=== PATIENT | female | born 1985 | race Hispanic/Latino ===

== ENCOUNTER 2017-01-26 09:55 | Inpatient (IN) | payer BC ==
[2017-01-26 10:05] VITALS: BMI 27.4
[2017-01-26 10:40] LABS: HEMATOCRIT 40.3 % (34.0-47.0); MEAN CELL VOLUME 88.5 fl (81.0-99.0); MEAN CORPUSCULAR HGB CONC 33.9 g/dL (33.0-37.0); WHITE BLOOD COUNT 8.2 K/uL (4.8-10.8)
[2017-01-26] MEDS ORDERED: Bupivacaine 0.5% Inj(30mL) ONE (12:25)
[2017-01-26] MEDS ORDERED: Succinylcholine 200 mg/10 ml Inj IV ONE (13:36)
[2017-01-26] MEDS ORDERED: Rocuronium 10 mg/ml (5 ml) ONE ×2 (13:36→15:36)
[2017-01-26] MEDS ORDERED: ePHEDrine 50 mg/ml Inj ONE (13:36)
[2017-01-26] MEDS ORDERED: Propofol 10 mg/ml Inj (20 ML) ONE (13:36)
[2017-01-26] MEDS ORDERED: Midazolam 2 MG/2 ML VIAL ONE (14:12)
[2017-01-26] MEDS ORDERED: Lactated Ringer's 1,000 ML IV ONE ×3 (14:17→17:15)
[2017-01-26] MEDS ORDERED: Chlorhexidine Gluconate 2OZ GEL TP ONE (14:26)
[2017-01-26] MEDS ORDERED: Bupivacaine 0.5% 50 ML IJ ONE ×3 (14:38→15:00)
[2017-01-26] MEDS ORDERED: Dexamethasone 4 mg/1 ml ONE (14:41)
[2017-01-26] MEDS ORDERED: Sevoflurane - Inhalation Anesthetic Liq (250 ml) ONE (14:52)
[2017-01-26] MEDS ORDERED: Neostigmine Methylsulfate 2 MG/2 ML ML IV ONE (16:48)
[2017-01-26] MEDS ORDERED: HYDROmorphone 0.5 mg/0.5 ml ISec ONE (17:18)
[2017-01-26] MEDS: HYDROmorphone 0.5 mg/0.5 ml ISec IVP PRN ×2 (17:18→17:24)
--- NOTE | 2017-01-26 17:19 | PCM.SURG1 ---
Surgeon's Initial Post Op Note - Surgeon's Notes Surgeon: Dr. Silva, Dr. Hines [place] Drier: Serene Hardy, PGY2 Pre-Operative Diagnosis: Endometriosis Operative Findings: see full report Post-Operative Diagnosis: endometriosis Operation Performed: Robotic assisted laparoscopic excision of endometriosis, hysteroscopy, cystoscopy with bilateral stenting with injection of dye Specimen/Specimens Removed: Anterior rectal, posterior uterine, and peritubular endometriosis, multiple specimens Estimated Blood Loss: EBL {In ML}: 50 Date of Surgery/Procedure: 01/26/17 Time of Surgery/Procedure: 14:30
[2017-01-26] MEDS ORDERED: Oxycodone/Acetaminophen 5/325 mg Tab PO PRN (17:23)
[2017-01-26 21:02] LABS: HEMATOCRIT 38.2 % (34.0-47.0); MEAN CELL VOLUME 88.6 fl (81.0-99.0); MEAN CORPUSCULAR HEMOGLOBIN 29.4 pg (27.0-31.0); MEAN CORPUSCULAR HGB CONC 33.1 g/dL (33.0-37.0); RED CELL DISTRIBUTION WIDTH 13.1 % (11.5-14.5); WHITE BLOOD COUNT 15.1 K/uL (4.8-10.8)
[2017-01-26 21:14] LABS: BLOOD UREA NITROGEN 12 mg/dl (7-17); CALCIUM 8.3 mg/dL (8.4-10.2); CARBON DIOXIDE 22 mmol/L (22-30); CHLORIDE 106 mmol/L (98-107); GFR AFRICAN-AMERICAN > 60; GLUCOSE,RANDOM 118 mg/dL (65-105); POTASSIUM 3.9 MMOL/L (3.6-5.0); SODIUM 139 mmol/l (132-148)
[2017-01-26] MEDS: Lactated Ringer's 1,000 ML IV PRN (22:14)
[2017-01-27] MEDS ORDERED: Oxycodone/Acetaminophen 5/325 mg Tab PO PRN ×2 (08:41)
[2017-01-27 08:49] LABS: BASO % 0.2 % (0.0-2.0); EOS % 0.1 % (0.0-4.0); LYMPH # 1.2 K/uL (1.0-4.3); LYMPH % 8.9 % (20.0-40.0); MEAN CORPUSCULAR HGB CONC 34.1 g/dL (33.0-37.0); MONO # 1.1 K/uL (0.0-0.8); MONO % 7.6 % (0.0-10.0); NEUT # 11.6 K/uL (1.8-7.0); NEUT % 83.2 % (50.0-75.0); PLATELET COUNT 204 K/uL (130-400); RED CELL DISTRIBUTION WIDTH 12.9 % (11.5-14.5); WHITE BLOOD COUNT 13.9 K/uL (4.8-10.8)
[2017-01-27 09:10] LABS: ALB/GLOB RATIO 1.3 (1.0-2.1); ALKALINE PHOSPHATASE 48 U/L (38-126); ALT/SGPT 25 U/L (9-52); AST/SGOT 20 U/L (14-36); BILIRUBIN,TOTAL 0.6 mg/dl (0.2-1.3); BLOOD UREA NITROGEN 9 mg/dl (7-17); CALCIUM 8.3 mg/dL (8.4-10.2); CARBON DIOXIDE 21 mmol/L (22-30); CHLORIDE 104 mmol/L (98-107); GFR AFRICAN-AMERICAN > 60; GLUCOSE,RANDOM 98 mg/dL (65-105); POTASSIUM 3.6 MMOL/L (3.6-5.0); SODIUM 136 mmol/l (132-148); TOTAL PROTEIN 6.1 G/DL (6.3-8.2)
[2017-01-27] MEDS: Lactated Ringer's 1,000 ML IV PRN (10:15)
[2017-01-27 10:54] LABS: NEUTROPHIL 80 % (42-75); TOTAL CELLS COUNTED 100
[2017-01-27 10:55] LABS: LARGE PLATELETS PRESENT
[2017-01-27] MEDS ORDERED: Simethicone 80 mg Chewtab PO PRN (16:36)
[2017-01-27 18:28] VITALS: BP 113/66; PULSE 86; RESP 20; TEMP 99.5; O2SAT 100
--- NOTE | 2017-01-31 08:34 | PCM.OP ---
Operative Report - Operative Report Date of Surgery/Procedure: 01/26/17 Time of Surgery/Procedure: 08:00 Surgeon: Dr. Hines Sheriff Sergeant: Dr. Silva Anesthesia/Sedation: general/Dr. Salcedo Pre-Operative Diagnosis: endometriosis and abdominal pain Post-Operative Diagnosis: endometriosis with involvement of multiple levels of colon and rectum Indication for Surgery: same Operative Findings: endometriosis with involvement of multiplemlevels of colon and rectum: 1-rectal wall. 2-anterior rectal wall #1`. 3-anterior rectal wall #2 Procedure/Operation Description: 1-Excision multiple rectal endometriosis. Brief history: This 32 year old woman was brought to the operating room by Dr. tarun Silva for abdominal pain and endometriosis when he discovered multiple lesion on the rectal wall. Intraoperative general surgery consultation was requested. Report of the porcedure. Description of the procedure: The patient had already been brought to the operating room by Dr. Silva and the robotic procedure had already been initiated (separate dictation Dr. Silva). After taking control of the robotic console the areas in question were examined. Using careful blunt and sharp dissection with the aid of elelctrocautery the first lesion on the deep rectal wall was carefull excised circumferentially and sent to pathology as a separarte specimen (rectal wall). The second and third lesions were excised in a similar manner and sent to patholoogy separately ( anterior rectal wall #1 and #2). The areas of excision were examined and hemostasism was deemed adeqaute. The operation was then turned over to Der. Silva (separate dictatation Dr. Silva). Estimated Blood Loss: 50 cc Complications: none Discharge & Condition: stable
--- NOTE | 2017-01-31 20:18 | OP ---
PROCEDURE DATE: 01/26/2017 SURGEON: Rad Silva MD KNIFER UP: Bandar Hines MD from General Surgery. TYPE OF ANESTHESIA: General endotracheal. ANESTHESIA ADMINISTERED BY: Eden Garcia MD PREOPERATIVE DIAGNOSES: Abdominal pain, pelvic pain, bladder pain, known history of endometriosis, dysmenorrhea, and dyspareunia. POSTOPERATIVE DIAGNOSES: Abdominal pain, pelvic pain, bladder pain, known history of endometriosis, dysmenorrhea, dyspareunia, stage IV endometriosis of the pelvis involving uterus, pelvis, and intestine. PROCEDURES: Cystoscopy with bilateral ureteral catheterization and injection of dye, diagnostic hysteroscopy, robotic laparoscopic excision of endometriosis, bilateral ureterolysis, and ovariolysis. COMPLICATIONS: None. SPECIMENS: Specimens sent to pathology are endometriosis of the posterior cervical, right periurethral, right ovarian, left periurethral, posterior cervical rectal wall, left periurethral, anterior rectal wall and right and left perirectal, all sent to pathology. NOTE: Dr. Hines from General Surgery will dictate part of this procedure separately as he deals without with the presence of extensive endometriosis on the colorectum. INDICATION OF THE PROCEDURE: This patient is a 32-year-old female with a history of severe abdominal pain who had been followed for an extensive period of time for extensive pain as well as anterior pelvic and abdominal symptoms. She had a prior surgery confirming the presence of endometriosis, but it was deemed to be too extensive for the surgeon who operated on her to be operate on, so we will very well aware prior to the procedure that this would be a very extensive case of endometriosis. Imaging prior to the surgery revealed presence of extensive rectovaginal adhesions with obliteration of the cul-de-sac and this was confirmed also by imaging and examination. The patient had failed multiple medical treatment. She was counseled with regards to the risks and benefits of the surgeries to the probability that the surgery would resolve her symptoms as well as to the possibility of complications including bladder and bowel injuries. At this point, the patient completed signing a consent and was taken to the OR. DESCRIPTION OF PROCEDURE: After adequate anesthesia was obtained, the patient was placed in the dorsal lithotomy position. She was padded extensively and she was prepped and draped. The surgeon was gowned and gloved. A time-out was called according to hospital policy and the procedure started. Attention was served first in the vaginal area where a cystoscope was performed by inserting the cystoscope under direct visualization into the bladder. Pancystoscopy was performed with attention on the anatomical location of both ureteral orifices that appeared to be in normal anatomical location. At this point, a 5-Turkmen open-ended catheter was inserted into the left ureter and advanced all the way to the distal ureter where 5 mL of IC-Green were injected into the distal ureter. The catheter was then removed and then, it was inserted in to the right ureter all the way to the distal ureter where 5 mL of IC-Green were injected into the right distal ureter. The catheter was then removed. At this point, rest of the pancystoscopy was performed where the bladder appeared to be free of lesions, masses, and bleeding areas. A 16-Turkmen Andersen was then placed into the bladder. At this point, attention was in the vaginal area where after placing a speculum in the vagina, the anterior lip of the cervix was grasped. The cervix was dilated and a hysteroscopy was performed visualizing the cavity appearing to be free of areas of adenomyosis, which was concerning in terms of pain and cramping. At this point, a uterine manipulator was placed in the uterus and attention was on the abdomen. After re-gowned and re-gloving, an incision was made on the umbilicus and a classic open laparoscopy technique was used to enter the abdominal cavity by incising the fascia and entering into peritoneum bluntly. A blunt trocar was then inserted and the abdomen was insufflated. Under direct visualization, the additional ports were inserted, left upper quadrant, left mid quadrant and right upper quadrant. At this point, the [employer] Xi robot was brought into the field and docked and aimed. Instruments were inserted and the upper abdomen was visualized revealing to be free of any endometriosis implant neither by the liver or by the omentum. On the lower side, the pelvis was visualized. The anterior aspect of the bladder was appeared to be normal, but the uterus appeared to be covered in inflammatory material in gelatinous inflammatory lesions and the uterus appeared to be in the retroversoflexed position with extensive adhesions in both ovaries encased and attached to the pelvic sidewalls bilaterally. Extensive endometriosis also appeared to be involve the rectosigmoid in its very lower part. At this point, attention was first on the right-hand side where the right ovary was elevated and progressively detached from the pelvic sidewall. The right ureter was identified, thanks to the use of the FireFly which was essential and utilized in this case as it would not have been visible otherwise and it was progressively dissected out and freed all the way down to the bladder completing a complete ureterolysis. At this point, attention was on the left-hand side of the pelvis where again the ureter was identified. The ovary was progressively slightly dissected up, but this was not possible without first identifying the ureter and dissecting it, so utilizing the FireFly, the peritoneum was entered above the ureter and a progressive dissection of the peritoneum was performed lateralizing the ureter and progressively excising a large area of peritoneum and then finally elevating the ovary. At this point, utilizing monopolar cautery, a large area of excision was performed originating on the left pelvic sidewall and progressing all the way to the posterior aspect of the uterus. This was done in a [id number] fashion progressively dissecting down a thick area of deep invasive endometriosis which was low fibrotic and involved both red lesions, black lesions and white lesions of endometriosis. This progressive deep dissection was performed in a peeled down type of way progressing up from the upper ovarian fossa and the uterine vessels all the way progressing down towards the bottom of the pelvis begin down into the right perirectal space. A large nodule of endometriosis was removed this way and sent to pathology. At this point, attention was on the backside of the uterus where an incision was made longitudinally behind the cervix and this was peeled down progressively all the way down to the rectum finally developing the rectovaginal space. A large swath of peritoneum containing endometriosis was also removed. At this point, a large nodule was present on the left-hand side by the left ureter and it was progressively dissected down and dissected off incorporating endometriosis as well as thickened perirectal fat with complete preservation of the hypogastric nerve plexus. Attention was then on the right-hand side of the pelvis, where again a similar dissection was performed first starting on the ovarian fossa from the ovaries down dissecting completely off the peritoneal wall, a large swath of peritoneum while preserving the ureter as well as the epigastric nerve plexus. At this point after the full dissection was performed on the lateral side, a further dissection was performed anteriorly dissecting wide areas of peritoneum in the right and the left perirectal areas. At this point, all the inflammatory areas on top of the uterus which were not endometriosis, but pure inflammation where also bipolar coagulated and removed. At this point, Dr. Bandar Hines from General Surgery came into the procedure and excised the rectal masses, which were quite extensive. The whole surgery was extremely laborious and lengthy in time and involved excision of extremely large amounts of endometriosis and this case would be classified as extremely difficult by [facility] standards. At this point, after Dr. Hines was done with his part of the surgery, the pelvis was irrigated. Hemostasis appeared to be excellent. Both ureters were visualized, thanks to the fluorescent technology. The robot was undocked. The abdomen was desufflated. The instruments were removed. The peritoneum was closed in layers utilizing 0 PDS for the fascia and 4-0 Monocryl for the skin. At the end of the procedure, all tapes and instruments counts were correct. The patient tolerated the procedure well, was taken to recovery room in excellent condition. Rad Silva MD
== END 2017-01-27 19:55 | disposition home or self-care (01) | DRG 743 ==
LOC: H.OPSURG 09:55 → H.PEDS 17:55 → OBSVTOIN 20:23
PROVIDERS: ADMIT Obstetrics & Gynecology Reproductive Endocrinology; ATTEND Obstetrics & Gynecology Reproductive Endocrinology
PROC: 8E0W4CZ Robotic Assisted Procedure of Trunk Region, Percutaneous Endoscopic Approach (ICD-10-PCS; 2017-01-26)
PROC: 0U5B8ZZ Destruction of Endometrium, Via Natural or Artificial Opening Endoscopic (ICD-10-PCS; principal; 2017-01-26 11:00)
PROC: 0U554ZZ Destruction of Right Fallopian Tube, Percutaneous Endoscopic Approach (ICD-10-PCS; 2017-01-26 11:00)
PROC: 0DBP4ZZ Excision of Rectum, Percutaneous Endoscopic Approach (ICD-10-PCS; 2017-01-26 11:00)
DX: N80.0 Endometriosis of uterus (principal); N80.2 Endometriosis of fallopian tube; N80.3 Endometriosis of pelvic peritoneum; N80.5 Endometriosis of intestine